=== PATIENT | female | born 1995 | race Two or more races ===

== ENCOUNTER 2019-03-09 09:08 | Emergency (ER) | payer MEDICAID, OTHER ==
[2019-03-09 09:14] VITALS: TEMP 98.7
--- NOTE | 2019-03-09 09:26 | ED ---
URI HPI - General Chief Complaint: Upper Respiratory Infection Stated Complaint: cough/poss pink eye Time Seen by Provider: 03/09/19 09:18 Source: patient, RN notes reviewed Mode of arrival: ambulatory Limitations: no limitations - History of Present Illness Initial Comments: 23-year-old female presents emergency Department chief complaint cough congest ion 2 weeks. Patient states that she felt there was just sinus drainage and cough but states that symptoms are worsened over the last 2 weeks states her cough is productive with phlegm at this time. Denies any chest pain or shortness breath no history of asthma. Denies being a smoker. Patient states that she also believes that she has conjunctivitis. 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 Patient states she has bilateral eye redness, drainage. Denies any blurred vision no ocular pain. Patient denies fevers or chills. She has been taking [id number] DayQuil, NyQuil with minimal relief. - Related Data Previous Rx's Medication Instructions Recorded Amoxicillin/Potassium Clav 1 tab PO Q12HR #20 tab 03/09/19 [Augmentin 875-125 Tablet] Tobramycin [Tobrex 0.3% Ophth Soln] 1 drop BOTH EYES Q4HR #5 ml 03/09/19 Allergies Allergy/AdvReac Type Severity Reaction Status Date / Time No Known Allergies Allergy Verified 03/09/19 09:11 Review of Systems ROS Statement: Those systems with pertinent positive or pertinent negative responses have been documented in the HPI. ROS Other: All systems not noted in ROS Statement are negative. Past Medical History Past Medical History: No Reported History Additional Past Medical History / Comment(s): PCOS History of Any Multi-Drug Resistant Organisms: None Reported Additional Past Surgical History / Comment(s): D&C Past Psychological History: No Psychological Hx Reported, Depression Smoking Status: Never smoker Past Alcohol Use History: Occasional Past Drug Use History: None Reported General Exam Limitations: no limitations General appearance: alert, in no apparent distress Head exam: Present: atraumatic, normocephalic, normal inspection Eye exam: Present: PERRL, EOMI, conjunctival injection (Bilateral). Absent: normal appearance, scleral icterus, periorbital swelling ENT exam: Present: normal exam, normal oropharynx, mucous membranes moist Neck exam: Present: normal inspection, full ROM. Absent: tenderness, meningismus, lymphadenopathy Respiratory exam: Present: normal lung sounds bilaterally. Absent: respiratory distress, wheezes, rales, rhonchi, stridor Cardiovascular Exam: Present: regular rate, normal rhythm, normal heart sounds. Absent: systolic murmur, diastolic murmur, rubs, gallop, clicks Neurological exam: Present: alert Skin exam: Present: warm, dry, intact, normal color. Absent: rash Course Vital Signs 03/09/19 09:11 Temperature 98.7 F Pulse Rate 88 Respiratory 18 Rate Blood Pressure 133/94 O2 Sat by Pulse 100 Oximetry Medical Decision Making - Medical Decision Making Chest x-rays unremarkable. Patient will be seen for acute sinusitis as symptoms have been present for 2 weeks. Patient be also treated for conjunctivitis. Return parameters were discussed. Disposition Clinical Impression: Sinusitis, Conjunctivitis Disposition: HOME SELF-CARE Condition: Stable Instructions (If sedation given, give patient instructions): Upper Respiratory Infection (ED) Additional Instructions: Please return to the Emergency Department if symptoms worsen or any other concerns. Prescriptions: Amoxicillin/Potassium Clav [Augmentin 875-125 Tablet] 1 tab PO Q12HR #20 tab Tobramycin [Tobrex 0.3% Ophth Soln] 1 drop BOTH EYES Q4HR #5 ml Is patient prescribed a controlled substance at d/c from ED?: No Referrals: Candie Sullivan DO [Primary Care Provider] - 1-2 days Time of Disposition: 10:01
--- NOTE | 2019-03-09 09:54 | XR ---
EXAMINATION TYPE: XR chest 2V DATE OF EXAM: 03/09/2019 COMPARISON: NONE HISTORY: Chest pain TECHNIQUE: Frontal and lateral views of the chest are obtained. FINDINGS: There is no focal air space opacity. No evidence for pneumothorax. No pleural effusion. The cardiac silhouette size is within normal limits. The osseous structures are grossly intact. IMPRESSION: 1. No acute cardiopulmonary process.
[2019-03-09 10:08] VITALS: RESP 16
[2019-03-09 10:16] VITALS: BP 120/81; PULSE 70
== END 2019-03-09 10:05 | disposition home or self-care (01) ==
LOC: EC 09:08
DX: J01.90 Acute sinusitis, unspecified (principal); H10.9 Unspecified conjunctivitis
CPT/HCPCS: 71046; 99283

== ENCOUNTER 2019-03-29 12:18 | Emergency (ER) | payer BC, MEDICAID ==
[2019-03-29 12:29] VITALS: BP 120/88; PULSE 90; RESP 16; TEMP 97.8
[2019-03-29] MEDS ORDERED: TOBRAMYCIN 0.3% OPHTH DROPS 5 ML BTL RIGHT EYE STA (12:50)
--- NOTE | 2019-03-29 12:54 | ED ---
Eye Problem HPI - General Chief complaint: Eye Problems Stated complaint: [place] eye Time Seen by Provider: 03/29/19 12:35 Source: patient, RN notes reviewed, old records reviewed Mode of arrival: ambulatory Limitations: no limitations - History of Present Illness Initial comments: 23 year old female with R eye irritation, drainage and crusting for 2 days. She was treated for bacterial conjunctivitis and reports it was cleared 2 weeks ago. She works in [employer]f and reports multiple people are suffering from pink eye, and thinks she reinfected herself. Patient reports that she has no visual changes. Denies pain with EOM. She denies fevers or chills. She reports she ran out of her first medication to try to treat herself at home. - Related Data Previous Rx's Medication Instructions Recorded Amoxicillin/Potassium Clav 1 tab PO Q12HR #20 tab 03/09/19 [Augmentin 875-125 Tablet] Tobramycin [Tobrex 0.3% Ophth Soln] 1 drop BOTH EYES Q4HR #5 ml 03/09/19 Tobramycin 0.3% Ophth Soln [Tobrex 1 - 2 drop BOTH EYES Q4H #5 ml 03/29/19 0.3% Ophth Soln] Allergies Allergy/AdvReac Type Severity Reaction Status Date / Time No Known Allergies Allergy Verified 03/09/19 09:11 Review of Systems ROS Statement: Those systems with pertinent positive or pertinent negative responses have been documented in the HPI. ROS Other: All systems not noted in ROS Statement are negative. Constitutional: Denies: chills Eyes: Reports: eye discharge (right). Denies: eye pain ENT: Denies: ear pain, throat pain Respiratory: Denies: cough Cardiovascular: Denies: chest pain Skin: Denies: rash Past Medical History Past Medical History: No Reported History Additional Past Medical History / Comment(s): PCOS History of Any Multi-Drug Resistant Organisms: None Reported Past Surgical History: No Surgical Hx Reported Additional Past Surgical History / Comment(s): D&C Past Psychological History: No Psychological Hx Reported, Depression Smoking Status: Never smoker Past Alcohol Use History: Occasional Past Drug Use History: None Reported General Exam - General Exam Comments Initial Comments: 23 year old female, no distress. Limitations: no limitations General appearance: alert, in no apparent distress Head exam: Present: atraumatic, normocephalic, normal inspection Eye exam: Present: normal appearance, PERRL, EOMI, other (R eye injection, drainage noted. ). Absent: scleral icterus, conjunctival injection, periorbital swelling ENT exam: Present: normal exam, mucous membranes moist Neck exam: Present: normal inspection. Absent: tenderness, meningismus, lymphadenopathy Respiratory exam: Present: normal lung sounds bilaterally. Absent: respiratory distress, wheezes, rales, rhonchi, stridor Cardiovascular Exam: Present: regular rate, normal rhythm, normal heart sounds. Absent: systolic murmur, diastolic murmur, rubs, gallop, clicks Psychiatric exam: Present: normal affect, normal mood Skin exam: Present: warm, dry, intact, normal color. Absent: rash Course Vital Signs 03/29/19 12:27 Temperature 97.8 F Pulse Rate 90 Respiratory 16 Rate Blood Pressure 120/88 O2 Sat by Pulse 99 Oximetry Medical Decision Making - Medical Decision Making 23 year old female, presents today for R eye irritation, concern for reeinfection of bacterial conjunctivitis. She recently was treated with tobrex and reports it worked. At this time patient eye appears to have conjunctivitis. Visual acuity intact.No signs of proptosis, periorbical cellulitis. Discussed DC with tobrex and if symptoms worsen to follow up with opthalmology. Disposition Clinical Impression: Conjunctivitis Disposition: HOME SELF-CARE Condition: Good Instructions (If sedation given, give patient instructions): Conjunctivitis (ED) Additional Instructions: Patient advised to apply the antibiotic to the eye. Have close follow-up with your primary care doctor. Return to the emergency department if any alarming signs or symptoms occur. Prescriptions: Tobramycin 0.3% Ophth Soln [Tobrex 0.3% Ophth Soln] 1 - 2 drop BOTH EYES Q4H #5 ml Is patient prescribed a controlled substance at d/c from ED?: No Referrals: Candie Sullivan DO [Primary Care Provider] - 1-2 days Time of Disposition: 12:54
== END 2019-03-29 13:06 | disposition home or self-care (01) ==
LOC: EC 12:18
DX: H10.9 Unspecified conjunctivitis (principal)
CPT/HCPCS: 99283

== ENCOUNTER 2019-06-04 07:11 | Emergency (ER) | payer OTHER ==
[2019-06-04 07:20] VITALS: TEMP 98.4
[2019-06-04 08:00] LABS: Hyaline Casts,Urine 3 /lpf (0-2); Mucus,Urine Many /hpf; RBC,Urine 3 /hpf (0-5); Squamous Epithelial Cell,Urine 5 /hpf (0-4); WBC,Urine 9 /hpf (0-5)
[2019-06-04 08:07] LABS: Appearance,Urine Clear (Clear); Bilirubin,Urine Negative (Negative); Blood,Urine Negative (Negative); Color,Urine Amber; Glucose,Urine (UA) Negative (Negative); Ketones,Urine Negative (Negative); Leukocyte Esterase,Urine Moderate (Negative); Nitrite,Urine Negative (Negative); Protein,Urine 1+ (Negative); Urobilinogen,Urine <2.0 mg/dL (<2.0)
[2019-06-04] MEDS ORDERED: SODIUM CHLORIDE 0.9% 1,000 ML IV STA (08:18)
[2019-06-04] MEDS ORDERED: KETOROLAC 30 MG/ML 1 ML VIAL IVP STA (08:18)
[2019-06-04 08:33] VITALS: RESP 20
--- NOTE | 2019-06-04 08:38 | ED ---
General Adult HPI - General Chief complaint: Abdominal Pain Stated complaint: trouble urinating/abd pain Time Seen by Provider: 06/04/19 07:21 Source: patient, RN notes reviewed Mode of arrival: ambulatory Limitations: no limitations - History of Present Illness Initial comments: 23 -year-old female with a past medical history of PCOS presents to the em ergency department for a chief complaint of lower abdominal pain. Patient states she has suprapubic pressure and left lower quadrant pressure. States this has been ongoing for about a week and a half. States that she has urinary frequency as well for the past week and a half. Concerned that she may have a urinary tract infection. Patient does agree that this pain feels similar to previous exacerbations of PCOS. She denies fevers or chills. She denies any vaginal discharge. Patient has no other complaints at this time including shortness of breath, chest pain, nausea and vomiting headache, or visual changes. - Related Data Previous Rx's Medication Instructions Recorded Amoxicillin/Potassium Clav 1 tab PO Q12HR #20 tab 03/09/19 [Augmentin 875-125 Tablet] Tobramycin [Tobrex 0.3% Ophth Soln] 1 drop BOTH EYES Q4HR #5 ml 03/09/19 Tobramycin 0.3% Ophth Soln [Tobrex 1 - 2 drop BOTH EYES Q4H #5 ml 03/29/19 0.3% Ophth Soln] Allergies Allergy/AdvReac Type Severity Reaction Status Date / Time No Known Allergies Allergy Verified 06/04/19 07:19 Review of Systems ROS Statement: Those systems with pertinent positive or pertinent negative responses have been documented in the HPI. ROS Other: All systems not noted in ROS Statement are negative. Past Medical History Past Medical History: No Reported History Additional Past Medical History / Comment(s): PCOS History of Any Multi-Drug Resistant Organisms: None Reported Past Surgical History: No Surgical Hx Reported Additional Past Surgical History / Comment(s): D&C Past Psychological History: No Psychological Hx Reported, Depression Smoking Status: Never smoker Past Alcohol Use History: Occasional Past Drug Use History: None Reported General Exam Limitations: no limitations General appearance: alert, in no apparent distress Head exam: Present: atraumatic, normocephalic, normal inspection Eye exam: Present: normal appearance, PERRL, EOMI. Absent: scleral icterus, conjunctival injection, periorbital swelling ENT exam: Present: normal exam, mucous membranes moist Neck exam: Present: normal inspection, full ROM. Absent: tenderness, meningismus, lymphadenopathy Respiratory exam: Present: normal lung sounds bilaterally. Absent: respiratory distress, wheezes, rales, rhonchi, stridor Cardiovascular Exam: Present: regular rate, normal rhythm, normal heart sounds. Absent: systolic murmur, diastolic murmur, rubs, gallop, clicks GI/Abdominal exam: Present: soft, tenderness (Minimal generalized lower abdominal tenderness worse in the suprapubic and left lower quadrants without guarding or rebound. Abdomen is soft to palpation.), normal bowel sounds. Absent: distended, guarding, rebound, rigid Expanded GI/Abdominal exam: Absent: psoas sign, obturator sign, heel tap sign, Marcelo's sign, Rovsing's sign, tenderness at [place] Neurological exam: Present: alert Psychiatric exam: Present: normal affect, normal mood Course Vital Signs 06/04/19 06/04/19 06/04/19 07:17 07:19 08:19 Temperature 98.4 F Pulse Rate 100 88 Respiratory 16 20 20 Rate Blood Pressure 124/84 124/78 O2 Sat by Pulse 98 99 Oximetry Medical Decision Making - Medical Decision Making She was seen and evaluated upon arrival. She is well appearing. Vital are stable. Physical exam is unremarkable aside from some minimal lower abdominal tenderness mostly suprapubic in nature. Patient denies any vaginal discharge. Patient denies any GI symptoms including vomiting or diarrhea. Patient did state that she has having urinary frequency without much volume. Bladder scan was normal. CBC shows mild acidosis until 0.8. Likely reactive. CMP is unremarkable. Urinalysis is unremarkable. There are 9 white blood cells however this is contaminated by squamous cells. Trichomonas is negative. Ultrasound was obtained which showed multiple cervical nabothian cysts. They're also to endometrial horns incidentally found. No sonographic evidence for ovarian torsion. There are ovarian volumes in appearance and keeping with provide a history of PCOS. Likely the cause of patient's discomfort. She was feeling much better upon reevaluation. Abdomen is nontender at this time. I discussed the patient that she needs to follow up with primary care or PURCHASING/RECEIVING to go over ultrasound results. I discussed that if she has any worsening symptoms over the weekend such as severe abdominal pain or fever she needs to return to the emergency determine. She is in agreement with this. I discussed this case with attending Dr. Larkin who agrees with this assessment and treatment plan. - Lab Data Result diagrams: 06/04/19 08:31 06/04/19 08:31 Lab Results 06/04/19 06/04/19 06/04/19 Range/Units 07:30 07:30 07:30 WBC (3.8-10.6) k/uL RBC (3.80-5.40) m/uL Hgb (11.4-16.0) gm/dL Hct (34.0-46.0) % MCV (80.0-100.0) fL MCH (25.0-35.0) pg MCHC (31.0-37.0) g/dL RDW (11.5-15.5) % Plt Count (150-450) k/uL Neutrophils % % Lymphocytes % % Monocytes % % Eosinophils % % Basophils % % Neutrophils # (1.3-7.7) k/uL Lymphocytes # (1.0-4.8) k/uL Monocytes # (0-1.0) k/uL Eosinophils # (0-0.7) k/uL Basophils # (0-0.2) k/uL Sodium (137-145) mmol/L Potassium (3.5-5.1) mmol/L Chloride (98-107) mmol/L Carbon Dioxide (22-30) mmol/L Anion Gap mmol/L BUN (7-17) mg/dL Creatinine (0.52-1.04) mg/dL Est GFR (CKD-EPI)AfAm (>60 ml/min/1.73 sqM) Est GFR (CKD-EPI)NonAf (>60 ml/min/1.73 sqM) Glucose (74-99) mg/dL Calcium (8.4-10.2) mg/dL Total Bilirubin (0.2-1.3) mg/dL AST (14-36) U/L ALT (4-34) U/L Alkaline Phosphatase (38-126) U/L Total Protein (6.3-8.2) g/dL Albumin (3.5-5.0) g/dL Urine Color [place] Urine Appearance Clear (Clear) Urine pH 6.0 (5.0-8.0) Ur Specific [place] 1.030 (1.001-1.035) Urine Protein 1+ H (Negative) Urine Glucose (UA) Negative (Negative) Urine Ketones Negative (Negative) Urine Blood Negative (Negative) Urine Nitrite Negative (Negative) Urine Bilirubin Negative (Negative) Urine Urobilinogen <2.0 (<2.0) mg/dL Ur Leukocyte Esterase Moderate (Negative) Urine RBC 3 (0-5) /hpf Urine WBC 9 H (0-5) /hpf Ur Squamous Epith Cells 5 H (0-4) /hpf Hyaline Casts 3 H (0-2) /lpf Urine Mucus Many H (None) /hpf Urine HCG, Qual Not Detected (Not Detectd) Trichomonas Ag (Rapid) Negative (Negative) 06/04/19 06/04/19 Range/Units 08:31 08:31 WBC 12.8 H (3.8-10.6) k/uL RBC 4.48 (3.80-5.40) m/uL Hgb 12.6 (11.4-16.0) gm/dL Hct 38.3 (34.0-46.0) % MCV 85.6 (80.0-100.0) fL MCH 28.1 (25.0-35.0) pg MCHC 32.8 (31.0-37.0) g/dL RDW 12.5 (11.5-15.5) % Plt Count 268 (150-450) k/uL Neutrophils % 78 % Lymphocytes % 14 % Monocytes % 5 % Eosinophils % 1 % Basophils % 0 % Neutrophils # 9.9 H (1.3-7.7) k/uL Lymphocytes # 1.7 (1.0-4.8) k/uL Monocytes # 0.7 (0-1.0) k/uL Eosinophils # 0.2 (0-0.7) k/uL Basophils # 0.0 (0-0.2) k/uL Sodium 139 (137-145) mmol/L Potassium 4.1 (3.5-5.1) mmol/L Chloride 104 (98-107) mmol/L Carbon Dioxide 28 (22-30) mmol/L Anion Gap 7 mmol/L BUN 11 (7-17) mg/dL Creatinine 0.78 (0.52-1.04) mg/dL Est GFR (CKD-EPI)AfAm >90 (>60 ml/min/1.73 sqM) Est GFR (CKD-EPI)NonAf >90 (>60 ml/min/1.73 sqM) Glucose 80 (74-99) mg/dL Calcium 9.3 (8.4-10.2) mg/dL Total Bilirubin 0.5 (0.2-1.3) mg/dL AST 24 (14-36) U/L ALT 15 (4-34) U/L Alkaline Phosphatase 104 (38-126) U/L Total Protein 7.8 (6.3-8.2) g/dL Albumin 4.2 (3.5-5.0) g/dL Urine Color Urine Appearance (Clear) Urine pH (5.0-8.0) Ur Specific [place] (1.001-1.035) Urine Protein (Negative) Urine Glucose (UA) (Negative) Urine Ketones (Negative) Urine Blood (Negative) Urine Nitrite (Negative) Urine Bilirubin (Negative) Urine Urobilinogen (<2.0) mg/dL Ur Leukocyte Esterase (Negative) Urine RBC (0-5) /hpf Urine WBC (0-5) /hpf Ur Squamous Epith Cells (0-4) /hpf Hyaline Casts (0-2) /lpf Urine Mucus (None) /hpf Urine HCG, Qual (Not Detectd) Trichomonas Ag (Rapid) (Negative) Disposition Clinical Impression: Abdominal pain Disposition: HOME SELF-CARE Condition: Good Instructions (If sedation given, give patient instructions): Abdominal Pain (ED) Additional Instructions: Please follow-up with primary care in 1-2 days. Go over ultrasound results with primary care for possible PURCHASING/RECEIVING referral. Return here to the emergency department if you have any worsening symptoms. These would include worsening abdominal pain or fevers. Follow up on culture results as well. Is patient prescribed a controlled substance at d/c from ED?: No Referrals: Candie Sullivan DO [Primary Care Provider] - 1-2 days Time of Disposition: 10:28
[2019-06-04 08:50] LABS: Basophils % (A) 0 %; Eosinophils # (A) 0.2 k/uL (0-0.7); Eosinophils % (A) 1 %; HCT 38.3 % (34.0-46.0); HGB 12.6 gm/dL (11.4-16.0); Lymphocytes # (A) 1.7 k/uL (1.0-4.8); Lymphocytes % (A) 14 %; MCH 28.1 pg (25.0-35.0); MCHC 32.8 g/dL (31.0-37.0); MCV 85.6 fL (80.0-100.0); Mean Platelet Volume 8.3; Monocytes # (A) 0.7 k/uL (0-1.0); Monocytes % (A) 5 %; Neutrophils # (A) 9.9 k/uL (1.3-7.7); Neutrophils % (A) 78 %; Platelet Count 268 k/uL (150-450); RBC 4.48 m/uL (3.80-5.40); RDW 12.5 % (11.5-15.5); WBC 12.8 k/uL (3.8-10.6)
[2019-06-04 08:52] LABS: ALT 15 U/L (4-34); AST 24 U/L (14-36); African American GFR (CKD) >90 (>60 ml/min/1.73 sqM); Albumin 4.2 g/dL (3.5-5.0); Alkaline Phosphatase 104 U/L (38-126); Anion Gap 7 mmol/L; Blood Urea Nitrogen 11 mg/dL (7-17); Calcium 9.3 mg/dL (8.4-10.2); Carbon Dioxide 28 mmol/L (22-30); Chloride 104 mmol/L (98-107); Glucose 80 mg/dL (74-99); Non-African American GFR(CKD) >90 (>60 ml/min/1.73 sqM); Potassium 4.1 mmol/L (3.5-5.1); Sodium 139 mmol/L (137-145); Total Bilirubin 0.5 mg/dL (0.2-1.3); Total Protein 7.8 g/dL (6.3-8.2)
--- NOTE | 2019-06-04 09:43 | US ---
EXAMINATION TYPE: US transvaginal plus Dopplers DATE OF EXAM: 06/04/2019 COMPARISON: NONE CLINICAL HISTORY: 23-year-old female LLQ pain. Pelvic pain, pt states h/o PCOS TECHNIQUE: Transvaginal sonographic images of the pelvis were acquired. Color Doppler and spectral wa veform analysis of the ovarian arteries and veins. Date of LMP: 04/23/2019 FINDINGS: EXAM MEASUREMENTS: Uterus: 8.2 x 3.3 x 4.4 cm Endometrial Stripe: 0.4 cm Right Ovary: 4.0 x 3.2 x 2.4 cm for volume of 16.0 mL. Left Ovary: 3.4 x 3.8 x 2.4 cm for a volume of 16.0 mL. 1. Uterus: Anteverted . Multiple Nabothian cysts in the cervix largest measuring 1.2 cm. 2. Endometrium: Possible right and left endometrial "horns" 3. Right Ovary: polycystic in appearance 4. Left Ovary: polycystic in appearance Spectral, color and waveform doppler imaging shows good arterial and venous flow within the ovaries ; there is no evidence for ovarian torsion. 5. Bilateral Adnexa: wnl 6. Posterior cul-de-sac: wnl IMPRESSION: 1. Multiple cervical nabothian cysts measuring up to 1.2 cm incidentally noted. 2. Possible septate versus arcuate configuration to the uterus given the appearance of 2 endometrial horns. 3. No sonographic evidence for ovarian torsion. 4. Ovarian volumes and appearance in keeping with provided history of PCOS.
[2019-06-04 10:51] VITALS: BP 125/70; PULSE 85
[2019-06-05 13:40] LABS: C. trachomatis,PCR Positive (Neg,Equiv); Chlamydia trachomatis Source Urine; N. gonorrhoeae,PCR Negative (Neg,Equiv); Neisseria Source Urine
== END 2019-06-04 10:50 | disposition home or self-care (01) ==
LOC: EC 07:11
DX: R10.814 Left lower quadrant abdominal tenderness (principal); E87.2 Acidosis; N88.8 Other specified noninflammatory disorders of cervix uteri; E28.2 Polycystic ovarian syndrome
CPT/HCPCS: 51798; 36415; 80053; 85025; 81001; 81025; 87808; 87491; 87591; 87070; 93975; 76830; 99284; 96374; 96361; J1885

== ENCOUNTER → 2020-01-29 | Outpatient (CLI) | payer OTHER | END | disposition home or self-care (01) | LOC: LABWHC1 09:10 | PROVIDERS: ATTEND Nurse Practitioner Family | DX: N91.2 Amenorrhea, unspecified (principal) | CPT/HCPCS: 36415; 84702 ==

== ENCOUNTER 2020-05-31 20:09 | Emergency (ER) | payer OTHER ==
--- NOTE | 2020-05-31 20:52 | ED ---
Abdominal Pain HPI - General Chief Complaint: Abdominal Pain Stated Complaint: 6 Weeks preg, cramping Time Seen by Provider: 05/31/20 20:17 Source: patient Mode of arrival: ambulatory Limitations: no limitations - History of Present Illness Initial Comments: at 24 or female presenting today for chief complaint of cramping and . Patient states that she has had cramping for the past 4 days she did to his lower midline. She denies any dysuria urgency frequency. She denies vaginal bleeding or abnormal discharge. She denies any vaginal orders. She denies fevers chills or general malaise states she sometimes has nausea in the morning which is the presence she found out she is . Patient denies any vomiting. She states she is chronic diarrhea from her metformin. Patient states that she Occasions with her last at 20 weeks and had a D&C she states she's not sure if this is related to her being anxious about this new but wanted to be sure that everything was going okay. Patient denies additional complaints and upon arrival she appears well and nontoxic distress - Related Data Previous Rx's Medication Instructions Recorded Amoxicillin/Potassium Clav 1 tab PO Q12HR #20 tab 03/09/19 [Augmentin 875-125 Tablet] Tobramycin [Tobrex 0.3% Ophth Soln] 1 drop BOTH EYES Q4HR #5 ml 03/09/19 Tobramycin 0.3% Ophth Soln [Tobrex 1 - 2 drop BOTH EYES Q4H #5 ml 03/29/19 0.3% Ophth Soln] Allergies Allergy/AdvReac Type Severity Reaction Status Date / Time No Known Allergies Allergy Verified 05/31/20 20:14 Review of Systems ROS Statement: Those systems with pertinent positive or pertinent negative responses have been documented in the HPI. ROS Other: All systems not noted in ROS Statement are negative. Past Medical History Past Medical History: No Reported History Additional Past Medical History / Comment(s): PCOS History of Any Multi-Drug Resistant Organisms: None Reported Past Surgical History: No Surgical Hx Reported Additional Past Surgical History / Comment(s): D&C Past Psychological History: Depression Smoking Status: Never smoker Past Alcohol Use History: Occasional Past Drug Use History: None Reported General Exam - General Exam Comments Initial Comments: General: The patient is awake and alert, in no distress Eye: Pupils are equal, round and reactive to light, extra-ocular movements are intact. No nystagmus. There is normal conjunctiva bilaterally. No signs of icterus. Ears, nose, mouth and throat: There are moist mucous membranes and no oral lesions. Neck: The neck is supple, there is no tenderness or JVD. Cardiovascular: There is a regular rate and rhythm. No murmur, rub or gallop is appreciated. Respiratory: Lungs are clear to auscultation, respirations are non-labored, breath sounds are equal. No wheezes, stridor, rales, or rhonchi. Gastrointestinal: Soft, non-distended, non-tender abdomen without masses or organomegaly noted. There is no rebound or guarding present. :No cervical motion or adnexal tenderness, scant discharge, no blood, no odors. Musculoskeletal: Normal ROM, no tenderness. Strength 5/5. Sensation intact. Radial and DP pulses equal bilaterally 2+. Neurological: A&O x 3. CN II-XII intact grossly, There are no obvious motor or sensory deficits. Coordination appears grossly intact. Speech is normal. Skin: Skin is warm and dry and no rashes or lesions are noted. Psychiatric: Cooperative, appropriate mood & affect, normal judgment. Limitations: no limitations Course Vital Signs 05/31/20 05/31/20 20:10 22:10 Temperature 98.7 F 98.2 F Pulse Rate 110 H 107 H Respiratory 19 18 Rate Blood Pressure 133/80 107/74 O2 Sat by Pulse 100 99 Oximetry Medical Decision Making - Medical Decision Making Discussed US findings with Dr. Elmore we discussed PE findings, VS, presenting history, history, as well as HCG levels ~14,000 with intrauterine sac but no pole/HR. I discussed the left ovarian vascular lesion, and my concern for possibility of heterozygous . At this time consulting providers feel patient is stable for discharge with close follow-up in 48 hours in office with strict return parameters-given minimal pain on exam, no bleeding, no hypotension/free fluid, US findings with intrauterine sac. Patient agreeable and stats she is comfortable with discharge. She is aware and verbalized importance of return for increasing pain, vaginal bleeding, lightheadedness, back pain or other unusual new symptoms as she is aware we cannot r/o ectopic . patient discharged appearing well provided repeat HCG and specific instruction. Dr. Larkin agreeable to care plan. - Lab Data Result diagrams: 05/31/20 20:37 05/31/20 20:37 Lab Results 05/31/20 05/31/20 05/31/20 Range/Units 20:31 20:37 20:37 WBC 14.3 H (3.8-10.6) k/uL RBC 4.47 (3.80-5.40) m/uL Hgb 13.1 (11.4-16.0) gm/dL Hct 38.5 (34.0-46.0) % MCV 86.2 (80.0-100.0) fL MCH 29.4 (25.0-35.0) pg MCHC 34.1 (31.0-37.0) g/dL RDW 12.5 (11.5-15.5) % Plt Count 275 (150-450) k/uL MPV 7.8 Neutrophils % 70 % Lymphocytes % 22 % Monocytes % 5 % Eosinophils % 1 % Basophils % 0 % Neutrophils # 10.1 H (1.3-7.7) k/uL Lymphocytes # 3.1 (1.0-4.8) k/uL Monocytes # 0.7 (0-1.0) k/uL Eosinophils # 0.1 (0-0.7) k/uL Basophils # 0.0 (0-0.2) k/uL Sodium 134 L (137-145) mmol/L Potassium 4.2 (3.5-5.1) mmol/L Chloride 102 (98-107) mmol/L Carbon Dioxide 23 (22-30) mmol/L Anion Gap 9 mmol/L BUN 9 (7-17) mg/dL Creatinine 0.75 (0.52-1.04) mg/dL Est GFR (CKD-EPI)AfAm >90 (>60 ml/min/1.73 sqM) Est GFR (CKD-EPI)NonAf >90 (>60 ml/min/1.73 sqM) Glucose 92 (74-99) mg/dL Calcium 9.5 (8.4-10.2) mg/dL Total Bilirubin 0.4 (0.2-1.3) mg/dL AST 39 H (14-36) U/L ALT 45 H (4-34) U/L Alkaline Phosphatase 104 (38-126) U/L Total Protein 7.9 (6.3-8.2) g/dL Albumin 4.4 (3.5-5.0) g/dL HCG, Quant 65569.2 mIU/mL Urine Color Light Yellow Urine Appearance Clear (Clear) Urine pH 5.5 (5.0-8.0) Ur Specific [place] 1.012 (1.001-1.035) Urine Protein Negative (Negative) Urine Glucose (UA) Negative (Negative) Urine Ketones Negative (Negative) Urine Blood Negative (Negative) Urine Nitrite Negative (Negative) Urine Bilirubin Negative (Negative) Urine Urobilinogen <2.0 (<2.0) mg/dL Ur Leukocyte Esterase Small H (Negative) Urine RBC 1 (0-5) /hpf Urine WBC 6 H (0-5) /hpf Ur Squamous Epith Cells 5 H (0-4) /hpf Urine Bacteria Occasional H (None) /hpf Urine Mucus Rare H (None) /hpf Trichomonas Ag (Rapid) (Negative) Blood Type Blood Type Recheck Bld Type Recheck Status 05/31/20 05/31/20 Range/Units 20:37 22:09 WBC (3.8-10.6) k/uL RBC (3.80-5.40) m/uL Hgb (11.4-16.0) gm/dL Hct (34.0-46.0) % MCV (80.0-100.0) fL MCH (25.0-35.0) pg MCHC (31.0-37.0) g/dL RDW (11.5-15.5) % Plt Count (150-450) k/uL MPV Neutrophils % % Lymphocytes % % Monocytes % % Eosinophils % % Basophils % % Neutrophils # (1.3-7.7) k/uL Lymphocytes # (1.0-4.8) k/uL Monocytes # (0-1.0) k/uL Eosinophils # (0-0.7) k/uL Basophils # (0-0.2) k/uL Sodium (137-145) mmol/L Potassium (3.5-5.1) mmol/L Chloride (98-107) mmol/L Carbon Dioxide (22-30) mmol/L Anion Gap mmol/L BUN (7-17) mg/dL Creatinine (0.52-1.04) mg/dL Est GFR (CKD-EPI)AfAm (>60 ml/min/1.73 sqM) Est GFR (CKD-EPI)NonAf (>60 ml/min/1.73 sqM) Glucose (74-99) mg/dL Calcium (8.4-10.2) mg/dL Total Bilirubin (0.2-1.3) mg/dL AST (14-36) U/L ALT (4-34) U/L Alkaline Phosphatase (38-126) U/L Total Protein (6.3-8.2) g/dL Albumin (3.5-5.0) g/dL HCG, Quant mIU/mL Urine Color Urine Appearance (Clear) Urine pH (5.0-8.0) Ur Specific [place] (1.001-1.035) Urine Protein (Negative) Urine Glucose (UA) (Negative) Urine Ketones (Negative) Urine Blood (Negative) Urine Nitrite (Negative) Urine Bilirubin (Negative) Urine Urobilinogen (<2.0) mg/dL Ur Leukocyte Esterase (Negative) Urine RBC (0-5) /hpf Urine WBC (0-5) /hpf Ur Squamous Epith Cells (0-4) /hpf Urine Bacteria (None) /hpf Urine Mucus (None) /hpf Trichomonas Ag (Rapid) Negative (Negative) Blood Type O Positive Blood Type Recheck No Previous Record Bld Type Recheck Status [facility] ONLY Disposition Clinical Impression: Abdominal cramping affecting , Threatened Disposition: HOME SELF-CARE Condition: Good Instructions (If sedation given, give patient instructions): Ectopic (DC), Threatened Miscarriage (ED) Additional Instructions: Please use medication as discussed. Please follow-up with Dr. Elmore in 48 hours, SATURDAY, call TOMORROW to schedule your appointment, please return to [facility] for lab draw of SERUM HCG prior to your appointment if possible. Please return to emergency room if the symptoms increase or worsen or for any other concerns-INCLUDING PAIN, VAGINAL BLEEDING, LIGHTHEADED SENSATION, BACK PAIN. Is patient prescribed a controlled substance at d/c from ED?: No Referrals: [facility] [Primary Care Provider] - 1-2 days Nika Pedraza MD [STAFF PHYSICIAN] - 06/02/20 Time of Disposition: 22:33
[2020-05-31 20:57] LABS: Basophils % (A) 0 %; Eosinophils # (A) 0.1 k/uL (0-0.7); Eosinophils % (A) 1 %; HCT 38.5 % (34.0-46.0); HGB 13.1 gm/dL (11.4-16.0); Lymphocytes # (A) 3.1 k/uL (1.0-4.8); Lymphocytes % (A) 22 %; MCH 29.4 pg (25.0-35.0); MCHC 34.1 g/dL (31.0-37.0); MCV 86.2 fL (80.0-100.0); Mean Platelet Volume 7.8; Monocytes # (A) 0.7 k/uL (0-1.0); Monocytes % (A) 5 %; Neutrophils # (A) 10.1 k/uL (1.3-7.7); Neutrophils % (A) 70 %; Platelet Count 275 k/uL (150-450); RBC 4.47 m/uL (3.80-5.40); RDW 12.5 % (11.5-15.5); WBC 14.3 k/uL (3.8-10.6)
[2020-05-31 21:05] LABS: ALT 45 U/L (4-34); AST 39 U/L (14-36); African American GFR (CKD) >90 (>60 ml/min/1.73 sqM); Albumin 4.4 g/dL (3.5-5.0); Alkaline Phosphatase 104 U/L (38-126); Anion Gap 9 mmol/L; Blood Urea Nitrogen 9 mg/dL (7-17); Calcium 9.5 mg/dL (8.4-10.2); Carbon Dioxide 23 mmol/L (22-30); Chloride 102 mmol/L (98-107); Glucose 92 mg/dL (74-99); Non-African American GFR(CKD) >90 (>60 ml/min/1.73 sqM); Potassium 4.2 mmol/L (3.5-5.1); Sodium 134 mmol/L (137-145); Total Bilirubin 0.4 mg/dL (0.2-1.3); Total Protein 7.9 g/dL (6.3-8.2)
[2020-05-31 21:49] LABS: HCG,Quantitative Serum 14467.2 mIU/mL
--- NOTE | 2020-05-31 21:53 | US ---
EXAMINATION TYPE: Transabdominal DATE OF EXAM: 05/31/2020 9:30 PM COMPARISON: US, This is first US for this . CLINICAL HISTORY: pain. Pain x 2 days. Hx PCOS, D & C in 2014 at 20 weeks. . EXAM PERFORMED: Transvaginal (TV) and Transabdominal (TA) EXAM MEASUREMENTS: GESTATIONAL AGE / DATING Physician Established: ( 5 weeks/6 days) EDC: 01/25/2021 Dates by LMP: Unknown Dates by First Scan: This is first scan at this facility. Dates by Current Scan for: (5 weeks/2 days) EDC: 01/29/2021 MATERNAL ANATOMY Uterus: 8.5 x 5.0 x 4.6 cm. Measurement is slightly limited. Multiple anechoic-hypoechoic areas seen in cervix with the appearance of nabothian cysts. Right Ovary: 3.4 x 2.0 x 2.6 cm. Left Ovary: 3.6 x 2.9 x 2.3 cm. Area of mixed echogenicity and peripheral vascularity seen measuring 2.3 x 1.9 x 1.6 cm. Post CDS / Adnexa: Appear wnl Presence of free fluid: Not seen. Presence of corpus luteal cyst: Area of mixed echogenicity and peripheral vascularity seen in left ov isis as mentioned above measuring 2.3 x 1.9 x 1.6 cm. Presence of subchorionic bleed: Not seen. GESTATION / SURVEY MSD: 1.20 cm. (5 weeks/2 days) Yolk Sac (normal less than 6mm): Not seen. IUP: Gestational sac only seen at this time by ultrasound. Date of LMP: Unknown Beta HcG (if available): Not available. IMPRESSION: Small intrauterine gestational sac. There is however complex cystic area on the left ovary with some vascularity. The possibility of early left side ectopic not entirely excluded. Follow-up ex am recommended to confirm a living intrauterine fetus.
[2020-05-31 21:55] LABS: Appearance,Urine Clear (Clear); Bacteria,Urine Occasional /hpf; Bilirubin,Urine Negative (Negative); Blood,Urine Negative (Negative); Color,Urine Light Yellow; Glucose,Urine (UA) Negative (Negative); Ketones,Urine Negative (Negative); Leukocyte Esterase,Urine Small (Negative); Mucus,Urine Rare /hpf; Nitrite,Urine Negative (Negative); PH, Urine 5.5 (5.0-8.0); Protein,Urine Negative (Negative); RBC,Urine 1 /hpf (0-5); Specific Gravity,Urine 1.012 (1.001-1.035); Squamous Epithelial Cell,Urine 5 /hpf (0-4); Urobilinogen,Urine <2.0 mg/dL (<2.0); WBC,Urine 6 /hpf (0-5)
[2020-05-31 22:11] VITALS: BP 107/74; PULSE 107; RESP 18; TEMP 98.2
== END 2020-05-31 22:49 | disposition home or self-care (01) ==
LOC: EC 20:09
DX: O20.0 Threatened abortion (principal); O26.891 Other specified pregnancy related conditions, first trimester; R19.7 Diarrhea, unspecified; Z3A.01 Less than 8 weeks gestation of pregnancy
CPT/HCPCS: 36415; 76801; 76817; 80053; 81001; 84702; 85025; 86900; 86901; 87070; 87491; 87591; 87808; 99284

== ENCOUNTER → 2020-06-02 | Outpatient (CLI) | payer OTHER | END | disposition home or self-care (01) | LOC: LABWHC1 09:20 | PROVIDERS: ATTEND Physician Assistant Medical | DX: O20.0 Threatened abortion (principal) | CPT/HCPCS: 36415; 84702 ==

== ENCOUNTER 2020-09-28 12:09 | Outpatient (CLI) | payer OTHER ==
[2020-09-28 13:17] VITALS: BP 131/75; PULSE 97; RESP 16; TEMP 96.8
--- NOTE | 2020-10-04 09:47 | P.MSEPDOC ---
Presenting Problems - Arrival Data Date of Arrival on Unit: 09/28/20 Time of Arrival on Unit: 12:09 Mode of Transport: Ambulatory - Complaint OB-Reason for Admission/Chief Complaint: Rule Out PROM, Decreased Movement Medical History - Information : 2 Para: 0 Term: 0 : 0 Abortions: Spontaneous or Elective: 1 Number of Living Children: 0 - Gestational Age Gestational Age by EDIS (wks/days): 22 Weeks and 4 Days Review of Systems - Review of Systems Constitutional: No problems Breast: No problems ENT: No problems Cardiovascular: No problems Respiratory: No problems Gastrointestinal: No problems Genitourinary: No problems Musculoskeletal: No problems Neurological: No problems Skin: No problems Vital Signs - Temperature Temperature: 96.8 F Temperature Source: Temporal Artery Scan - Pulse Right Sitting Pulse Rate: 97 Pulse Assessment Method: Automatic Cuff - Respirations Respiratory Rate: 16 Oxygen Delivery Method: Room Air - Blood Pressure Right Arm Blood Pressure: 131/75 Blood Pressure Mean: 93 Blood Pressure Source: Automatic Cuff Physician Notification - Physician Notified Physician Notified Date: 09/28/20 Physician Notified Time: 13:07 Physician: Meredith Wlels Order Received: Yes (d/c home) Maternal Triage Index - Non-Urgent/Priority 4 Non-Urgent Priority 4: Yes Criteria Met for Priority 4: dopplered fht 130-150 bpm, negative amnisure Disposition - Disposition OB Disposition: Physician follow up in office, Discharge to home Discharge Date: 09/28/20 Discharge Time: 13:11 I agree with the RN Medical Screening Exam: Yes Case reviewed; plan agreed upon as documented in EMR&OBIX.: Yes Comments: Patient was neither seen nor examined by me. Diagnosis: DECREASED MOVEMENTS, SECOND TRIMESTER, FETUS 1
== END 2020-09-28 13:11 | disposition home or self-care (01) ==
LOC: FBPOP 12:09
PROVIDERS: ATTEND Obstetrics & Gynecology
DX: O36.8121 Decreased fetal movements, second trimester, fetus 1 (principal); Z3A.22 22 weeks gestation of pregnancy
CPT/HCPCS: 84112; G0463; 99213

== ENCOUNTER 2020-11-01 23:39 | Outpatient (CLI) | payer OTHER ==
[2020-11-02 00:35] LABS: Appearance,Urine Clear (Clear); Bacteria,Urine Rare /hpf; Bilirubin,Urine Negative (Negative); Blood,Urine Negative (Negative); Calcium Oxalate Crystals,Urine Few /hpf; Color,Urine Yellow; Glucose,Urine (UA) Trace (Negative); Hyaline Casts,Urine 1 /lpf (0-2); Ketones,Urine Negative (Negative); Leukocyte Esterase,Urine Moderate (Negative); Mucus,Urine Occasional /hpf; Nitrite,Urine Negative (Negative); Protein,Urine Negative (Negative); RBC,Urine 1 /hpf (0-5); Specific Gravity,Urine 1.017 (1.001-1.035); Squamous Epithelial Cell,Urine 3 /hpf (0-4); Urobilinogen,Urine <2.0 mg/dL (<2.0); WBC,Urine 6 /hpf (0-5)
[2020-11-02 01:08] VITALS: BP 122/75; PULSE 93; RESP 18; TEMP 96.3
--- NOTE | 2020-11-26 11:52 | P.MSEPDOC ---
Presenting Problems - Arrival Data Date of Arrival on Unit: 11/01/20 Time of Arrival on Unit: 23:39 Mode of Transport: Ambulatory - Complaint OB-Reason for Admission/Chief Complaint: Signs/Symptoms UTI Medical History - Information : 2 Para: 0 Term: 0 : 0 Abortions: Spontaneous or Elective: 0 Number of Living Children: 0 - Gestational Age Gestational Age by EDIS (wks/days): 27 Weeks and 4 Days Review of Systems - Review of Systems Constitutional: No problems Breast: No problems ENT: No problems Cardiovascular: No problems Respiratory: No problems Gastrointestinal: No problems Genitourinary: Urgency, Increased frequency Musculoskeletal: No problems Neurological: No problems Skin: No problems Vital Signs - Temperature Temperature: 96.3 F Temperature Source: Temporal Artery Scan - Pulse Right Supine Brachial Pulse Rate: 93 Pulse Assessment Method: Automatic Cuff - Respirations Respiratory Rate: 18 Oxygen Delivery Method: Room Air - Blood Pressure Right Arm Supine Blood Pressure: 122/75 Blood Pressure Mean: 90 Blood Pressure Source: Automatic Cuff Medical Screen Scoring - Cervical Exam Membranes: Intact - Assessment - Baby A Baseline FHR: 135 Heart Rate - NICHD Category: Category I (Normal) Physician Notification - Physician Notified Physician Notified Date: 11/02/20 Physician Notified Time: 01:00 Physician: Bryson Huddleston Order Received: Yes Maternal Triage Index - Maternal Triage Index Presenting for scheduled procedure w/no complaint: No - Stat/Priority 1 Stat Priority 1: No - Urgent/Priority 2 Urgent Priority 2: No - Prompt/Priority 3 Prompt Priority 3: No - Non-Urgent/Priority 4 Non-Urgent Priority 4: Yes Criteria Met for Priority 4: 27 weeks c/o urinary frequency and urgency Disposition - Disposition OB Disposition: Discharge to home Discharge Date: 11/02/20 Discharge Time: 01:08 I agree with the RN Medical Screening Exam: Yes Physician's MSE Comment: I have neither seen nor examined the patient. Case reviewed; plan agreed upon as documented in EMR&OBIX.: Yes Diagnosis: RELATED CONDITIONS, UNSPECIFIED, SECOND TRIMESTER
== END 2020-11-02 01:08 | disposition home or self-care (01) ==
LOC: FBPOP 23:39
PROVIDERS: ATTEND Obstetrics & Gynecology
DX: O23.42 Unspecified infection of urinary tract in pregnancy, second trimester (principal); Z3A.27 27 weeks gestation of pregnancy
CPT/HCPCS: 81001; 87086; G0463; 99213

== ENCOUNTER 2020-11-28 17:18 | Outpatient (CLI) | payer OTHER ==
[2020-11-28 19:02] VITALS: BP 117/72; PULSE 95; RESP 16; TEMP 97.1
--- NOTE | 2021-02-01 16:14 | P.MSEPDOC ---
Presenting Problems - Arrival Data Date of Arrival on Unit: 11/28/20 Time of Arrival on Unit: 17:18 Mode of Transport: Ambulatory - Complaint OB-Reason for Admission/Chief Complaint: Other Comment: pt c/o greenish discharge. and a yeast infection that dr dsouza gave her a presription for last week. but pt hasnt started it yet. she wanted to know if we could do a test on her to make sure that she actually have a yeast infection Medical History - Information : 2 Para: 0 Term: 0 : 0 Abortions: Spontaneous or Elective: 1 Number of Living Children: 0 - Gestational Age Gestational Age by EDIS (wks/days): 31 Weeks and 2 Days Review of Systems - Review of Systems Constitutional: No problems Breast: No problems ENT: No problems Cardiovascular: No problems Respiratory: No problems Gastrointestinal: No problems Genitourinary: No problems Musculoskeletal: No problems Neurological: No problems Skin: No problems Vital Signs - Temperature Temperature: 97.1 F Temperature Source: Temporal Artery Scan - Pulse Right Brachial Pulse Rate: 95 Pulse Assessment Method: Automatic Cuff - Respirations Respiratory Rate: 16 Oxygen Delivery Method: Room Air O2 Sat by Pulse Oximetry: 98 - Blood Pressure Right Arm Blood Pressure: 117/72 Blood Pressure Mean: 87 Blood Pressure Source: Automatic Cuff Medical Screen Scoring - Cervical Exam Dilation (cm): 0 Station: -3 Membranes: Intact - Uterine Contractions Frequency From (mins): 0 Frequency To (mins): 0 - Assessment - Baby A Baseline FHR: 140 Heart Rate - NICHD Category: Category I (Normal) Physician Notification - Physician Notified Physician Notified Date: 11/28/20 Physician Notified Time: 18:35 Physician: Dr Anderson New Order Received: Yes - Notification Comment Comment: may discharge to home undelivered with instruction to start taking the terconazole that dr dsouza prescribed her last week and keep scheduled appoinment for next saturday Maternal Triage Index - Non-Urgent/Priority 4 Non-Urgent Priority 4: Yes Criteria Met for Priority 4: pt 31 2/7 weeks gestation. c/o greenish discharge and has a yeast infection. NST done and reactive. exam FT long and thick with a yellowish autumn discharge noted on vaginal glove after vaginal exam Disposition - Disposition OB Disposition: Discharge to home Discharge Date: 11/28/20 Discharge Time: 18:45 I agree with the RN Medical Screening Exam: Yes Case reviewed; plan agreed upon as documented in EMR&OBIX.: Yes Comments: Patient was not seen were examined by myself Diagnosis: PELVIC AND PERINEAL PAIN
== END 2020-11-28 18:45 | disposition home or self-care (01) ==
LOC: FBPOP 17:18
PROVIDERS: ATTEND Obstetrics & Gynecology Obstetrics
DX: O26.893 Other specified pregnancy related conditions, third trimester (principal); R10.2 Pelvic and perineal pain; Z3A.31 31 weeks gestation of pregnancy
CPT/HCPCS: 59025; G0463; 99213

== ENCOUNTER 2020-12-12 00:07 | Outpatient (CLI) | payer OTHER ==
[2020-12-12 01:00] LABS: Amorphous Sediment,Urine Rare /hpf; Appearance,Urine Clear (Clear); Bilirubin,Urine Negative (Negative); Blood,Urine Negative (Negative); Color,Urine Yellow; Glucose,Urine (UA) 1+ (Negative); Ketones,Urine 1+ (Negative); Leukocyte Esterase,Urine Moderate (Negative); Mucus,Urine Rare /hpf; Nitrite,Urine Negative (Negative); PH, Urine 6.5 (5.0-8.0); Protein,Urine Negative (Negative); RBC,Urine <1 /hpf (0-5); Specific Gravity,Urine 1.018 (1.001-1.035); Squamous Epithelial Cell,Urine 5 /hpf (0-4); Urobilinogen,Urine <2.0 mg/dL (<2.0); WBC,Urine 13 /hpf (0-5)
[2020-12-12 01:36] VITALS: BP 114/67; PULSE 97; RESP 16; TEMP 97.3
--- NOTE | 2021-02-01 16:20 | P.MSEPDOC ---
Presenting Problems - Arrival Data Date of Arrival on Unit: 12/12/20 Time of Arrival on Unit: 00:10 Mode of Transport: Ambulatory - Complaint OB-Reason for Admission/Chief Complaint: Pain Comment: Patient presents to triage with lower pelvic and vaginal pressure. Patient states that it is not pain, but discomfort, states that the discomfort. is "steady" rated at a 2/10. Medical History - Information : 2 Para: 0 Term: 0 : 0 Abortions: Spontaneous or Elective: 1 Number of Living Children: 0 - Gestational Age Gestational Age by EDIS (wks/days): 33 Weeks and 2 Days Review of Systems - Review of Systems Constitutional: No problems Breast: No problems ENT: No problems Cardiovascular: No problems Respiratory: No problems Gastrointestinal: No problems Genitourinary: No problems Musculoskeletal: No problems Neurological: No problems Skin: No problems Vital Signs - Temperature Temperature: 97.3 F Temperature Source: Temporal Artery Scan - Pulse Left Brachial Pulse Rate: 97 Pulse Assessment Method: Automatic Cuff - Respirations Respiratory Rate: 16 Oxygen Delivery Method: Room Air O2 Sat by Pulse Oximetry: 99 - Blood Pressure Right Arm Blood Pressure: 114/67 Blood Pressure Mean: 82 Blood Pressure Source: Automatic Cuff Medical Screen Scoring - Cervical Exam Dilation (cm): 1 Membranes: Intact - Assessment - Baby A Baseline FHR: 140 Heart Rate - NICHD Category: Category I (Normal) NST: Reactive Physician Notification - Physician Notified Physician Notified Date: 12/12/20 Physician Notified Time: 00:42 Physician: Maddison Anderson New Order Received: Yes - Notification Comment Comment: 0042- Dr. Anderson called with report on patient c/o lower pelvic pressure rated at a 2/10. FFN was collected and cervix is 1/thick/high. NST reactive and patient is not meron. u/a to be sent to lab. If negative patient can be discharged, if positive call for further orders. 0113- Dr. Anderson called with report of resulted u/a, patient to be discharged home, increase fluid intake, and follow up in the office this week. Patient has not been meron no need to check cervix prior to discharge. Maternal Triage Index - Maternal Triage Index Presenting for scheduled procedure w/no complaint: No - Stat/Priority 1 Stat Priority 1: No - Urgent/Priority 2 Urgent Priority 2: No - Prompt/Priority 3 Prompt Priority 3: No - Non-Urgent/Priority 4 Non-Urgent Priority 4: Yes Criteria Met for Priority 4: pelvic and vaginal pressure Disposition - Disposition OB Disposition: Discharge to home Discharge Date: 12/12/20 Discharge Time: 01:22 I agree with the RN Medical Screening Exam: Yes Physician's MSE Comment: Patient was not seen nor examined by myself Case reviewed; plan agreed upon as documented in EMR&OBIX.: Yes Diagnosis: FALSE LABOR BEFORE 37 COMPLETED WEEKS OF GEST, THIRD TRI
== END 2020-12-12 01:22 ==
LOC: FBPOP 00:07
PROVIDERS: ATTEND Obstetrics & Gynecology Obstetrics
DX: O47.03 False labor before 37 completed weeks of gestation, third trimester (principal); Z3A.33 33 weeks gestation of pregnancy
CPT/HCPCS: 59025; 81001; G0463; 99213

== ENCOUNTER 2021-01-02 11:42 | Outpatient (CLI) | payer OTHER ==
[2021-01-02 13:29] VITALS: BP 134/82; PULSE 100; RESP 18; TEMP 97.6
--- NOTE | 2021-01-25 07:40 | P.MSEPDOC ---
Presenting Problems - Arrival Data Date of Arrival on Unit: 01/02/21 Time of Arrival on Unit: 11:42 Mode of Transport: Ambulatory - Complaint OB-Reason for Admission/Chief Complaint: Rule Out SROM, Pain Comment: pt presents to triage for cramping and increased vagingal discharge Medical History - Information : 2 Para: 0 Term: 0 : 0 Abortions: Spontaneous or Elective: 1 Number of Living Children: 0 - Gestational Age Gestational Age by EDIS (wks/days): 36 Weeks and 2 Days - History Complications: GBS+ Review of Systems - Review of Systems Constitutional: No problems Breast: No problems ENT: No problems Cardiovascular: No problems Respiratory: No problems Gastrointestinal: No problems Genitourinary: No problems Musculoskeletal: No problems Neurological: No problems Skin: No problems Vital Signs - Temperature Temperature: 97.6 F Temperature Source: Temporal Artery Scan - Pulse Right Brachial Pulse Rate: 100 Pulse Assessment Method: Automatic Cuff - Respirations Respiratory Rate: 18 Oxygen Delivery Method: Room Air O2 Sat by Pulse Oximetry: 98 - Blood Pressure Right Arm Blood Pressure: 134/82 Blood Pressure Mean: 99 Blood Pressure Source: Automatic Cuff Medical Screen Scoring - Cervical Exam Dilation (cm): 1 Effacement (%): 50 Station: -3 Membranes: Intact - Assessment - Baby A Baseline FHR: 130 Heart Rate - NICHD Category: Category I (Normal) NST: Reactive Physician Notification - Physician Notified Physician Notified Date: 01/02/21 Physician Notified Time: 13:15 Physician: Maddison Anderson New Order Received: Yes - Notification Comment Comment: pt had reactive nst, amniosure negative, same cervical exam as in the office last week, has appt on with Dr. Wells Maternal Triage Index - Maternal Triage Index Presenting for scheduled procedure w/no complaint: No - Stat/Priority 1 Stat Priority 1: No - Urgent/Priority 2 Urgent Priority 2: No - Prompt/Priority 3 Prompt Priority 3: Yes Criteria Met for Priority 3: pt GA 36/27 with cramping and possible SROM - Non-Urgent/Priority 4 Non-Urgent Priority 4: No - Scheduled/Requesting Priority 5 Scheduled/Requesting Priority 5: No Disposition - Disposition OB Disposition: Triage, Discharge to home, Written follow up instructions reviewed Discharge Date: 01/02/21 Discharge Time: 13:25 I agree with the RN Medical Screening Exam: Yes Case reviewed; plan agreed upon as documented in EMR&OBIX.: Yes Comments: Patient was neither seen nor examined by me Diagnosis: FALSE LABOR BEFORE 37 COMPLETED WEEKS OF GEST, THIRD TRI
== END 2021-01-02 13:25 | disposition home or self-care (01) ==
LOC: FBPOP 11:42
PROVIDERS: ATTEND Obstetrics & Gynecology
DX: O47.03 False labor before 37 completed weeks of gestation, third trimester (principal); Z3A.36 36 weeks gestation of pregnancy
CPT/HCPCS: 59025; 84112; G0463; 99213

== ENCOUNTER 2021-01-04 13:35 | Outpatient (CLI) | payer OTHER ==
[2021-01-04 15:10] VITALS: BP 123/81; PULSE 90; RESP 18; TEMP 97
--- NOTE | 2021-02-05 13:17 | P.MSEPDOC ---
Presenting Problems - Arrival Data Date of Arrival on Unit: 01/04/21 Time of Arrival on Unit: 13:35 Mode of Transport: Ambulatory - Complaint OB-Reason for Admission/Chief Complaint: Other Comment: difficulty breathing Medical History - Information : 2 Para: 0 Term: 0 : 0 Abortions: Spontaneous or Elective: 1 Number of Living Children: 0 - Gestational Age Gestational Age by EDIS (wks/days): 36 Weeks and 4 Days Review of Systems - Review of Systems Constitutional: No problems Breast: No problems ENT: No problems Cardiovascular: No problems Respiratory: No problems Gastrointestinal: No problems Genitourinary: No problems Musculoskeletal: No problems Neurological: No problems Skin: No problems Vital Signs - Temperature Temperature: 97 F Temperature Source: Temporal Artery Scan - Pulse Radial Pulse Rate: 90 Pulse Assessment Method: Automatic Cuff - Respirations Respiratory Rate: 18 Oxygen Delivery Method: Room Air - Blood Pressure Right Arm Sitting Blood Pressure: 123/81 Blood Pressure Mean: 95 Blood Pressure Source: Automatic Cuff Medical Screen Scoring - Cervical Exam Membranes: Intact - Uterine Contractions Resting: Soft to palpation - Assessment - Baby A Baseline FHR: 130 Heart Rate - NICHD Category: Category I (Normal) NST: Reactive Physician Notification - Physician Notified Physician Notified Date: 01/04/21 Physician Notified Time: 15:00 Physician: Maddison Anderson New Order Received: Yes Maternal Triage Index - Maternal Triage Index Presenting for scheduled procedure w/no complaint: No - Stat/Priority 1 Stat Priority 1: No - Urgent/Priority 2 Urgent Priority 2: No - Prompt/Priority 3 Prompt Priority 3: No - Non-Urgent/Priority 4 Non-Urgent Priority 4: Yes Criteria Met for Priority 4: common discomfort of - difficulty breathing - dyspnea Disposition - Disposition OB Disposition: Discharge to home Discharge Date: 01/04/21 Discharge Time: 15:10 I agree with the RN Medical Screening Exam: Yes Case reviewed; plan agreed upon as documented in EMR&OBIX.: Yes Comments: Patient was not seen reexamined by myself Diagnosis: RELATED CONDITIONS, UNSPECIFIED, THIRD TRIMESTER
== END 2021-01-04 15:10 | disposition home or self-care (01) ==
LOC: FBPOP 13:35
PROVIDERS: ATTEND Obstetrics & Gynecology Obstetrics
DX: O26.893 Other specified pregnancy related conditions, third trimester (principal); R06.00 Dyspnea, unspecified; Z3A.36 36 weeks gestation of pregnancy
CPT/HCPCS: 59025; G0463; 99213

== ENCOUNTER 2021-01-23 20:10 | Outpatient (CLI) | payer OTHER ==
[2021-01-23 20:47] LABS: Glucose,Whole Blood 109 mg/dL (75-99)
[2021-01-23 21:12] VITALS: BP 125/75; PULSE 94; RESP 16; TEMP 98
--- NOTE | 2021-01-28 11:33 | P.MSEPDOC ---
Presenting Problems - Arrival Data Date of Arrival on Unit: 01/23/21 Time of Arrival on Unit: 20:10 Mode of Transport: Ambulatory - Complaint OB-Reason for Admission/Chief Complaint: Visual Disturbances, Dizziness Medical History - Information : 1 Para: 0 Term: 0 : 0 Abortions: Spontaneous or Elective: 0 Number of Living Children: 0 - Gestational Age Gestational Age by EDIS (wks/days): 39 Weeks and 2 Days - History Sexually Transmitted Diseases: HSV Review of Systems - Review of Systems Constitutional: No problems Breast: No problems ENT: No problems Cardiovascular: No problems Respiratory: No problems Gastrointestinal: No problems Genitourinary: No problems Musculoskeletal: No problems Neurological: Dizziness Skin: No problems Vital Signs - Temperature Temperature: 98.0 F Temperature Source: Oral - Pulse Pulse Oximetery Pulse Rate: 94 Pulse Assessment Method: Pulse Oximetry - Respirations Respiratory Rate: 16 Oxygen Delivery Method: Room Air O2 Sat by Pulse Oximetry: 99 - Blood Pressure Right Arm Blood Pressure: 125/75 Blood Pressure Mean: 91 Blood Pressure Source: Automatic Cuff Medical Screen Scoring - Assessment - Baby A Baseline FHR: 135 Heart Rate - NICHD Category: Category I (Normal) NST: Reactive Physician Notification - Physician Notified Physician Notified Date: 01/23/21 Physician Notified Time: 20:49 Physician: Bryson Huddleston Order Received: Yes (d/c pt home and keep f/u ilda with niver 01/24/21.) Maternal Triage Index - Maternal Triage Index Presenting for scheduled procedure w/no complaint: No - Stat/Priority 1 Stat Priority 1: No - Urgent/Priority 2 Urgent Priority 2: No - Prompt/Priority 3 Prompt Priority 3: No - Non-Urgent/Priority 4 Non-Urgent Priority 4: Yes Criteria Met for Priority 4: pt present to triage with dizziness since 1600 and one episode of blurred vision that resolved at home. Disposition - Disposition OB Disposition: Discharge to home, Written follow up instructions reviewed Discharge Date: 01/23/21 Discharge Time: 20:59 I agree with the RN Medical Screening Exam: Yes Physician's MSE Comment: I have neither seen nor examined the patient. Case reviewed; plan agreed upon as documented in EMR&OBIX.: Yes Diagnosis: RELATED CONDITIONS, UNSPECIFIED, THIRD TRIMESTER
== END 2021-01-23 20:49 | disposition home or self-care (01) ==
LOC: FBPOP 20:10
PROVIDERS: ATTEND Obstetrics & Gynecology
DX: O99.891 Other specified diseases and conditions complicating pregnancy (principal); H53.9 Unspecified visual disturbance; Z3A.39 39 weeks gestation of pregnancy
CPT/HCPCS: 59025; G0463; 99213

== ENCOUNTER 2021-01-29 16:35 | Outpatient (CLI) | payer OTHER ==
[2021-01-29 16:45] VITALS: BP 124/61; PULSE 93; RESP 18; TEMP 96.4
== END 2021-01-29 18:05 | disposition home or self-care (01) ==
LOC: FBPOP 16:35
PROVIDERS: ATTEND Obstetrics & Gynecology
DX: O62.9 Abnormality of forces of labor, unspecified (principal); Z3A.40 40 weeks gestation of pregnancy
CPT/HCPCS: 59025; G0463; 99213

== ENCOUNTER 2021-01-29 19:10 | Inpatient (IN) | payer OTHER ==
[2021-01-29] MEDS ORDERED: OXYTOCIN 10 UNIT/ML 1 ML VIAL IM PRN (19:36)
[2021-01-29] MEDS ORDERED: TERBUTALINE 1 MG/ML VIAL SQ PRN (19:36)
[2021-01-29] MEDS ORDERED: METHYLERGONOVINE 0.2 MG/ML 1 ML AMP IM PRN (19:36)
[2021-01-29] MEDS ORDERED: LIDOCAINE 0.5% (PF) 5 MG/ML (50 ML SDV) SQ PRN (19:36)
[2021-01-29] MEDS ORDERED: CARBOPROST TROMETHAMINE 250 MCG/ML 1 ML AMP IM PRN (19:36)
[2021-01-29] MEDS ORDERED: PENICILLIN G POTASSIUM 5,000,000 UNIT in DEXTROSE 5% IN WATER 100 ML IVPB STA ×2 (19:36)
[2021-01-29] MEDS ORDERED: BUTORPHANOL 1 MG/ML 1 ML VIAL IV PRN (19:37)
[2021-01-29] MEDS ORDERED: OXYTOCIN 30 UNITS/500 ML NS 30 UNIT in SALINE 1 500ML.BAG IV SCH (19:45)
[2021-01-29] MEDS: LACTATED RINGERS 1,000 ML IV SCH (20:04)
[2021-01-29 20:48] LABS: Basophils % (A) 0 %; Eosinophils # (A) 0.1 k/uL (0-0.7); Eosinophils % (A) 0 %; HCT 37.3 % (34.0-46.0); HGB 12.6 gm/dL (11.4-16.0); Lymphocytes % (A) 11 %; MCH 28.7 pg (25.0-35.0); MCHC 33.9 g/dL (31.0-37.0); MCV 84.5 fL (80.0-100.0); Mean Platelet Volume 9.8; Monocytes # (A) 0.7 k/uL (0-1.0); Monocytes % (A) 4 %; Neutrophils # (A) 14.9 k/uL (1.3-7.7); Neutrophils % (A) 82 %; Platelet Count 367 k/uL (150-450); RBC 4.41 m/uL (3.80-5.40); RDW 13.8 % (11.5-15.5); WBC 18.2 k/uL (3.8-10.6)
[2021-01-29] MEDS ORDERED: SODIUM CHLORIDE 0.9% 100 ML BAG ONE (21:13)
[2021-01-29] MEDS ORDERED: fentaNYL (PF) 50 MCG/ML 5 ML AMP ONE (21:13)
[2021-01-29] MEDS ORDERED: ROPIVACAINE 5MG/ML 20ML VIAL ONE (21:13)
[2021-01-30] MEDS: PENICILLIN G POTASSIUM 2,500,000 UNIT in DEXTROSE 5% IN WATER 100 ML IVPB SCH ×10 (00:22→21:31)
[2021-01-30] MEDS: LACTATED RINGERS 1,000 ML IV SCH ×3 (00:22→21:31)
--- NOTE | 2021-01-30 03:00 | P.HPOB ---
History of Present Illness H&P Date: 01/30/21 Chief Complaint: 40-2/7 weeks, active labor The patient is a 25-year-old 2 para 0010 admitted at 40-2/7 weeks as established by early ultrasound. She is admitted in early active labor with all signs reassuring. Her has been uncomplicated though she is known to be group B strep positive based on early urine culture. She also carries a history of herpes simplex for which she has been on Valtrex starting at approximately 36 weeks. She lastly is known to be rubella nonimmune. On labor and delivery, heart tones demonstrated category 1 tracing. Obstetrical history: 2 para 0010 with one early miscarriage not requiring D&C. Current statistics are listed in history of present illness. EDC of 01/28/2021 was established by early ultrasound. Laboratory workup demonstrates a blood type of O+ with a negative antibody screen. Rubella status is nonimmune. The remainder of the laboratory workup was within normal limits. Early Glucola was within normal limits as was second trimester Glucola. Group B strep status is positive based on early urine culture. Gynecologic history: Unremarkable with no history of infections to include STDs aside from the history of HSV for which she has been prophylaxed with Valtrex since approximately 36 weeks. Review of Systems Review of systems is confined to history of present illness. Past Medical History Past Medical History: No Reported History Additional Past Medical History / Comment(s): PCOS History of Any Multi-Drug Resistant Organisms: None Reported Past Surgical History: No Surgical Hx Reported Additional Past Surgical History / Comment(s): D&C Past Anesthesia/Blood Transfusion Reactions: No Reported Reaction Past Psychological History: Depression Smoking Status: Never smoker Past Alcohol Use History: Occasional Past Drug Use History: None Reported - Past Family History Father Additional Family Medical History / Comment(s): "Heart problems" Medications and Allergies Home Medications Medication Instructions Recorded Confirmed Type Aspirin 1 tab PO DAILY 09/28/20 01/29/21 History Pnv No.95/Ferrous Fum/Folic AC 1 tab PO DAILY 09/28/20 01/29/21 History [ Multivitamin Tablet] metFORMIN HCL 500 mg PO BID 09/28/20 01/29/21 History valACYclovir [Valtrex] 1 tab PO DAILY 01/23/21 01/29/21 History Allergies Allergy/AdvReac Type Severity Reaction Status Date / Time No Known Allergies Allergy Verified 01/29/21 19:15 Exam Vital Signs Temp Pulse Resp BP Pulse Ox 01/29/21 19:49 97.8 F 95 18 130/81 100 01/29/21 19:14 97.9 F 95 16 130/81 100 Intake and Output 01/29/21 01/29/21 01/30/21 14:59 22:59 06:59 Output Total 550 Balance -550 Output: Urine 550 Other: Weight 104.78 kg In general, this is a well-developed, well-nourished white female in no acute distress. Her heart has a regular rhythm and rate without murmur. Her lungs are clear to auscultation bilaterally in all romeo. Her abdomen is gravid, nondistended, has normal active bowel sounds, soft, nontender, and without any palpable masses aside from the uterine fundus. Her extremities are without any cyanosis, clubbing, or significant edema and are nontender to palpation bilaterally. Digital cervical examination on straights her cervix to be 9 cm dilated, 90% effaced, the vertex in presentation at approximately 0 station. Artificial rupture of membranes is carried out demonstrating clear fluid. Results Result Diagrams: 01/29/21 20:00 Abnormal Lab Results - Last 24 Hours (Table) 01/29/21 Range/Units 20:00 WBC 18.2 H (3.8-10.6) k/uL Neutrophils # 14.9 H (1.3-7.7) k/uL Assessment and Plan (1) Post-dates Current Visit: Yes Status: Acute Code(s): O48.0 - POST-TERM SNOMED Code(s): 22890895 (2) Active labor at term Current Visit: Yes Status: Acute Code(s): YTZ3041 - SNOMED Code(s): 43233126 (3) History of herpes genitalis Current Visit: Yes Status: Acute Code(s): Z86.19 - PERSONAL HISTORY OF OTHER INFECTIOUS AND PARASITIC DISEASES SNOMED Code(s): 097636269 (4) Positive testing for group B Streptococcus Current Visit: Yes Status: Acute Code(s): B95.1 - STREPTOCOCCUS, GROUP B, CAUSING DISEASES [facility] SNOMED Code(s): 140807654 Plan: The patient has been admitted for active management of labor. Epidural catheter is in place for analgesia. She will continue to have close maternal and surveillance and expectant management will be practiced. Antibiotic prophylaxis for group B strep was initiated upon admission. We will anticipate normal vaginal delivery in the near future.
[2021-01-30] MEDS ORDERED: SIMETHICONE 80 MG CHEWABLE PO PRN (05:14)
[2021-01-30] MEDS ORDERED: BENZOCAINE/MENTHOL SPRAY 1 GM/SPRAY AEROSOL TOPICAL PRN (05:14)
[2021-01-30] MEDS ORDERED: diphenhydrAMINE 25 MG CAP PO PRN (05:14)
[2021-01-30] MEDS ORDERED: HYDROCORTISONE 2.5% RECTAL CREAM 30 GM TUBE RECTAL PRN (05:14)
[2021-01-30] MEDS ORDERED: HYDROcodone/APAP 7.5-325MG 1 EACH TAB PO PRN (05:14)
[2021-01-30] MEDS ORDERED: HYDROcodone/APAP 5-325MG 1 EACH TAB PO PRN (05:14)
[2021-01-30] MEDS ORDERED: diphenhydrAMINE 50 MG/ML 1 ML VIAL IVP PRN ×2 (05:14)
[2021-01-30] MEDS ORDERED: ZOLPIDEM 5 MG TAB PO PRN (05:14)
[2021-01-30] MEDS ORDERED: ACETAMINOPHEN TAB 325 MG TAB PO PRN (05:14)
[2021-01-30] MEDS ORDERED: diphenhydrAMINE 50 MG CAP PO PRN (05:14)
[2021-01-30] MEDS ORDERED: LANOLIN CREAM 5 GM TUBE TOPICAL PRN (05:14)
[2021-01-30] MEDS ORDERED: OXYTOCIN 30 UNITS/500 ML NS 30 UNIT in SALINE 1 500ML.BAG IV SCH (05:15)
--- NOTE | 2021-01-30 05:17 | P.PROBDLV ---
Vaginal Delivery Note - . Vaginal Delivery Note: The patient is a 25-year-old 2 para 0010 admitted at 40-2/7 weeks by good dating parameters. She is admitted in early active labor with all signs reassuring. Her has been essentially uncomplicated. 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 On labor and delivery, she has a category 1 heart rate tracing. She had an epidural catheter placed for analgesia and then progressed fairly quickly through the active phase of labor at which time she underwent artificial rupture of membranes at approximately 9 cm of dilation. She then progressed to complete and then pushed over the course of approximately 1 hour to a normal spontaneous vaginal delivery of a viable 6 lbs. 8 oz. baby girl with Apgars of 9 at 1 minute and 9 at 5 minutes delivered in the direct occiput anterior position. There was a loose nuchal cord 1 which was reduced following delivery of the infant. The placenta was delivered spontaneously, intact, and grossly normal with a grossly normal three-vessel cord inserted approximate 2-3 cm from the margin of the placental disc. There were no lacerations of the perineum, vagina, or cervix. Assessment a blood loss was approximately 100 mL. There were no compilations. All sponge, instrument, needle counts were correct. Both mother and are resting comfortably in recovery.
[2021-01-30] MEDS: SENNOSIDES-DOCUSATE SODIUM 1 EACH TAB PO SCH ×2 (10:08→21:23)
[2021-01-30] MEDS: IBUPROFEN 600 MG TAB PO PRN (20:33)
[2021-01-31 06:17] LABS: Basophils # (A) 0.1 k/uL (0-0.2); Basophils % (A) 0 %; Eosinophils # (A) 0.2 k/uL (0-0.7); Eosinophils % (A) 1 %; HCT 32.8 % (34.0-46.0); HGB 10.7 gm/dL (11.4-16.0); Lymphocytes # (A) 3.2 k/uL (1.0-4.8); Lymphocytes % (A) 20 %; MCH 28.9 pg (25.0-35.0); MCHC 32.6 g/dL (31.0-37.0); MCV 88.8 fL (80.0-100.0); Monocytes # (A) 0.8 k/uL (0-1.0); Monocytes % (A) 5 %; Neutrophils # (A) 11.6 k/uL (1.3-7.7); Neutrophils % (A) 72 %; Platelet Count 297 k/uL (150-450); RBC 3.69 m/uL (3.80-5.40); RDW 13.6 % (11.5-15.5); WBC 16.2 k/uL (3.8-10.6)
--- NOTE | 2021-01-31 07:33 | P.DS ---
Providers Date of admission: 01/29/21 19:42 Expected date of discharge: 01/31/21 Attending physician: Meredith Wells Primary care physician: Stated None Hospital Course: 25 year old presented at 40 1/7 weeks gestation in active spontanous labor, delivered vaginally with the aid of an epidural. She delivered a female 6# 8oz or 2950 grams. EBL:100cc, no lacerations, see dictated delivery note. See dictations for details. This morning patient is doing well, voiding, ambulating, normal lochia, breasts nonengored, fundus firm, extremities negative. She is in excellant condition for discharge. She will see me in the office in 6 weeks, no intercourse or tampons, continue vitamin daily. We discussed options for contraception. Call with any fever, foul smelling or copious lochia, with any pain no alleviated by ibuprofen 600mg every 6 hours, with any questions or concerns. will follow up with rabbit breeder as recommended. Assessment: Doing well first post day Patient Condition at Discharge: Good Plan - Discharge Summary Discharge Rx Participant: No New Discharge Prescriptions: No Action metFORMIN HCL 500 mg PO BID Pnv No.95/Ferrous Fum/Folic AC [ Multivitamin Tablet] 1 tab PO DAILY valACYclovir [Valtrex] 1 tab PO DAILY Aspirin 1 tab PO DAILY Discharge Medication List Aspirin 1 tab PO DAILY 09/28/20 [History] Pnv No.95/Ferrous Fum/Folic AC [ Multivitamin Tablet] 1 tab PO DAILY 09/28/20 [History] metFORMIN HCL 500 mg PO BID 09/28/20 [History] valACYclovir [Valtrex] 1 tab PO DAILY 01/23/21 [History] Follow up Appointment(s)/Referral(s): Meredith Wells MD [STAFF PHYSICIAN] - 6 Weeks Discharge Disposition: HOME SELF-CARE
[2021-01-31] MEDS: IBUPROFEN 600 MG TAB PO PRN ×3 (07:53→20:50)
[2021-01-31] MEDS: SENNOSIDES-DOCUSATE SODIUM 1 EACH TAB PO SCH ×2 (15:32→20:50)
[2021-02-01] MEDS: IBUPROFEN 600 MG TAB PO PRN (02:48)
[2021-02-01 08:13] VITALS: BP 117/78; PULSE 76; RESP 16; TEMP 98.2
[2021-02-01] MEDS: SENNOSIDES-DOCUSATE SODIUM 1 EACH TAB PO SCH (09:00)
== END 2021-02-01 09:40 | disposition home or self-care (01) | DRG 806 ==
LOC: FBPOP 19:10 → 4FBP 19:42
PROVIDERS: ADMIT Obstetrics & Gynecology; ATTEND Obstetrics & Gynecology
PROC: 10E0XZZ Delivery of Products of Conception, External Approach (ICD-10-PCS; principal; 2021-01-30)
PROC: 00HU33Z Insertion of Infusion Device into Spinal Canal, Percutaneous Approach (ICD-10-PCS; principal; 2021-01-30)
PROC: 3E0R3NZ Introduction of Analgesics, Hypnotics, Sedatives into Spinal Canal, Percutaneous Approach (ICD-10-PCS; principal; 2021-01-30)
DX: O48.0 Post-term pregnancy (principal); O98.32 Other infections with a predominantly sexual mode of transmission complicating childbirth; Z37.0 Single live birth; O69.81X0 Labor and delivery complicated by cord around neck, without compression, not applicable or unspecified; A60.00 Herpesviral infection of urogenital system, unspecified; O99.344 Other mental disorders complicating childbirth; O99.824 Streptococcus B carrier state complicating childbirth; Z3A.40 40 weeks gestation of pregnancy; F32.9 Major depressive disorder, single episode, unspecified; O99.284 Endocrine, nutritional and metabolic diseases complicating childbirth; E28.2 Polycystic ovarian syndrome; Z98.890 Other specified postprocedural states; Z79.82 Long term (current) use of aspirin; Z79.84 Long term (current) use of oral hypoglycemic drugs; Z82.49 Family history of ischemic heart disease and other diseases of the circulatory system
CPT/HCPCS: 59025; 85025; 86850; 86900; 86901; 99213

== ENCOUNTER 2021-02-11 22:17 | Emergency (ER) | payer OTHER ==
[2021-02-11 22:26] VITALS: BP 116/77; PULSE 90; RESP 20; TEMP 97.9
--- NOTE | 2021-02-11 22:52 | ED ---
Recheck HPI - General Chief Complaint: Recheck/Abnormal Lab/Rx Stated Complaint: wants covid test Time Seen by Provider: 02/11/21 22:32 Source: patient, RN notes reviewed, old records reviewed Mode of arrival: ambulatory Limitations: no limitations - History of Present Illness Initial Comments: This is a 25-year-old female to the emergency or today. Patient Dese for evaluation regarding in need of coronavirus testing. He does have positive exposure and concern for her exposing her daughter. Complaint: other (Patient for coronavirus testing) -: minutes(s) Returns Today for: request for prescription Symptoms Since Prior Visit: no new symptoms (Coronavirus test) Context: planned re-check Associated Symptoms: none Treatments Prior to Arrival: other (none) - Related Data Home Medications Medication Instructions Recorded Confirmed Pnv No.95/Ferrous Fum/Folic AC 1 tab PO DAILY 09/28/20 02/11/21 [ Multivitamin Tablet] metFORMIN HCL 500 mg PO BID 09/28/20 02/11/21 Allergies Allergy/AdvReac Type Severity Reaction Status Date / Time No Known Allergies Allergy Verified 02/11/21 23:14 Review of Systems ROS Statement: Those systems with pertinent positive or pertinent negative responses have been documented in the HPI. ROS Other: All systems not noted in ROS Statement are negative. Past Medical History Past Medical History: No Reported History Additional Past Medical History / Comment(s): PCOS History of Any Multi-Drug Resistant Organisms: None Reported Past Surgical History: No Surgical Hx Reported Additional Past Surgical History / Comment(s): D&C Past Anesthesia/Blood Transfusion Reactions: No Reported Reaction Past Psychological History: Depression Smoking Status: Vaper Past Alcohol Use History: None Reported, Occasional Past Drug Use History: None Reported - Past Family History Father Additional Family Medical History / Comment(s): "Heart problems" General Exam Limitations: no limitations General appearance: alert, in no apparent distress Head exam: Present: atraumatic, normocephalic, normal inspection Eye exam: Present: normal appearance, PERRL, EOMI. Absent: scleral icterus, conjunctival injection, periorbital swelling ENT exam: Present: normal exam, mucous membranes moist Neck exam: Present: normal inspection. Absent: tenderness, meningismus, lymphadenopathy Respiratory exam: Present: normal lung sounds bilaterally. Absent: respiratory distress, wheezes, rales, rhonchi, stridor Cardiovascular Exam: Present: regular rate, normal rhythm, normal heart sounds. Absent: systolic murmur, diastolic murmur, rubs, gallop, clicks GI/Abdominal exam: Present: soft, normal bowel sounds. Absent: distended, tenderness, guarding, rebound, rigid Extremities exam: Present: normal inspection, full ROM, normal capillary refill. Absent: tenderness, pedal edema, joint swelling, calf tenderness Back exam: Present: normal inspection Neurological exam: Present: alert, oriented X3, CN II-XII intact Psychiatric exam: Present: normal affect, normal mood Skin exam: Present: warm, dry, intact, normal color. Absent: rash Course Vital Signs 02/11/21 22:24 Temperature 97.9 F Pulse Rate 90 Respiratory 20 Rate Blood Pressure 116/77 O2 Sat by Pulse 98 Oximetry - Reevaluation(s) Reevaluation #1: 02/11/21 23:59 Medical record is reviewed Reevaluation #2: 02/11/21 23:59 Patient informed of negative coronavirus test Medical Decision Making - Medical Decision Making 25 female here for coronavirus test, patient informed negative for excessive patient can be discharged home - Lab Data Lab Results 02/11/21 Range/Units 22:39 Coronavirus (PCR) Not Detected (Not Detectd) Disposition Clinical Impression: Normal exam Disposition: HOME SELF-CARE Instructions (If sedation given, give patient instructions): Normal Exam (ED) Is patient prescribed a controlled substance at d/c from ED?: No Referrals: None,Stated [Primary Care Provider] - 1-2 days
== END 2021-02-12 00:05 | disposition home or self-care (01) ==
LOC: EC 22:17
DX: Z00.00 Encounter for general adult medical examination without abnormal findings (principal); F32.9 Major depressive disorder, single episode, unspecified; F17.290 Nicotine dependence, other tobacco product, uncomplicated; Z72.89 Other problems related to lifestyle
CPT/HCPCS: 87635; 99282